=== PATIENT | male | born 1990 | race Caucasian/White ===

== ENCOUNTER 2016-07-02 19:21 | Emergency (ER) | payer SELFPAY ==
[2016-07-02] MEDS ORDERED: OPTIRAY 350 100 ML VIAL HMH IV ONE (19:55)
[2016-07-02] MEDS ORDERED: DILAUDID 1 MG/ML AMP ONE ×2 (20:05→21:32)
[2016-07-02] MEDS ORDERED: ONDANSETRON 4 MG VIAL ONE (20:05)
== END 2016-07-02 22:11 | disposition home or self-care (01) ==
LOC: EDBD 19:21 → ER 19:21
DX: S29.012A Strain of muscle and tendon of back wall of thorax, initial encounter (principal); S39.012A Strain of muscle, fascia and tendon of lower back, initial encounter; S20.219A Contusion of unspecified front wall of thorax, initial encounter; S30.1XXA Contusion of abdominal wall, initial encounter; V40.6XXA Car passenger injured in collision with pedestrian or animal in traffic accident, initial encounter
CPT/HCPCS: 36415; 70450; 71260; 72125; 74177; 80053; 85025; 96374; 96375; 96376